=== PATIENT | male | born 1990 | race Caucasian/White ===

== ENCOUNTER 2022-06-14 14:55 | Outpatient (CLI) | payer SELFPAY ==
--- NOTE | 2022-06-14 15:07 | USCV_ITS ---
Curt Beny Age: 32 Gender: M : 1990 Exam Date: 06/14/2022 15:17 Ordering Phys: Love Morel MD Technologist: FERNANDO Exam Location: [facility] [place] Indication: Near syncope/benign essential HTN BP: 136 / 78 HR: 79 Rhythm: Sinus Technical Quality: Good MEASUREMENTS (Male / Female) Normal Values 2D ECHO LV Diastolic Diameter PLAX 4.5 cm 4.2 - 5.9 / 3.9 - 5.3 cm LV Systolic Diameter PLAX 3.1 cm IVS Diastolic Thickness 0.9 cm 0.6 - 1.0 / 0.6 - 0.9 cm IVS Systolic Thickness 1.5 cm LVPW Diastolic Thickness 0.7 cm 0.6 - 1.0 / 0.6 - 0.9 cm LVPW Systolic Thickness 1.0 cm LVOT Diameter 2.0 cm LV Ejection Fraction 2D Teich 60.3 % LV Ejection Fraction MOD 2C 60.9 % LV Ejection Fraction 2C AL 60.8 % LA Diameter 2.1 cm Aorta at Sinotubular Diameter 2.6 cm IVC Diameter 1.6 cm M-MODE Aortic Annulus Diameter 3.0 cm LA Ao Ratio MM 0.7 MV E Point Septal Separation 0.4 cm DOPPLER AV Peak Velocity 117.0 cm/s LVOT Peak Velocity 107.0 cm/s AV Area Cont Eq vti 2.6 cm squared AV Area Cont Eq pk 3.0 cm squared MV Area PHT 5.0 cm squared Mitral E to A Ratio 1.5 MV E' Velocity 53.0 cm/s Mitral E to MV E' Ratio 5.2 Mitral E to LV E' Lateral Ratio 4.3 Mitral E to LV E' Septal Ratio 6.7 TR Peak Velocity 192.0 cm/s TR Peak Gradient 14.7 mmHg Right Atrial Pressure 3.0 mmHg Pulmonary Artery Systolic Pressu 17.7 mmHg PV Peak Velocity 111.0 cm/s RV Acceleration Time 0.1 s RV Ejection Time 0.3 s RV AcT/ET 0.4 FINDINGS Left Ventricle Normal left ventricular size, systolic function and wall thickness, with no regional wall motion abnormalities. Left ventricular ejection fraction is estimated at 60 %. Normal diastolic function. Right Ventricle Normal right ventricular size and systolic function. Right ventricular systolic pressure 17.7 mmHg. Right Atrium Normal right atrial size. Right atrial pressure estimated at 3 mmHg. Left Atrium Normal left atrial size. Mitral Valve Structurally normal mitral valve. No mitral valve stenosis. Trace mitral valve regurgitation. Aortic Valve Structurally normal trileaflet aortic valve. No aortic valve stenosis. No aortic valve regurgitation. Tricuspid Valve Structurally normal tricuspid valve. No tricuspid valve stenosis. Trace to mild tricuspid valve regurgitation. Pulmonic Valve Structurally normal pulmonic valve. No pulmonary valve stenosis. Trace pulmonary valve regurgitation. Pericardium No pericardial effusion. Aorta Normal size aortic root and proximal ascending aorta. IVC Normal IVC dimension with >50% respiratory change of the inferior vena cava. CONCLUSIONS 1. Normal left ventricular size, systolic function and wall thickness, with no regional wall motion abnormalities. Left ventricular ejection fraction is estimated at 60 %. Normal diastolic function. 2. Normal right ventricular size and systolic function. 3. Trace to mild tricuspid valve regurgitation. 4. Normal pulmonary artery pressure. 5. No significant change when compared to prior study dated 05/17/2016. Leann Figueroa MD (Electronically Signed) Final Date: 22 June 2022 16:50 S
== END 2022-06-14 14:56 | disposition home or self-care (01) ==
LOC: RAD 14:58
PROVIDERS: PCP Internal Medicine; Visit Provider Internal Medicine
DX: I07.1 Rheumatic tricuspid insufficiency (principal); R55 Syncope and collapse; I10 Essential (primary) hypertension
CPT/HCPCS: 93306

== ENCOUNTER → 2023-02-01 09:18 | Outpatient (BNVA) | payer SELFPAY | PROVIDERS: PCP Internal Medicine; Visit Provider Nurse Practitioner Family | DX: J02.9 Acute pharyngitis, unspecified (principal) | CPT/HCPCS: 87071; 87880 ==